=== PATIENT | female | born 1980 | race Hispanic/Latino ===

== ENCOUNTER 2024-08-31 11:34 | Inpatient (IN) | payer OTHER ==
[2024-08-31] MEDS ORDERED: Misoprostol 200 MCG TAB PR PRN (13:13)
[2024-08-31] MEDS ORDERED: hydrALAZINE 20 MG/ML VIAL SLOW IVP PRN ×4 (13:13→22:11)
[2024-08-31] MEDS ORDERED: Ondansetron PF 4 MG/2 ML Vial IVP PRN ×4 (13:13→22:11)
[2024-08-31] MEDS ORDERED: Calcium Gluc 4.6 MEQ/10 ML (100 MG/ML) SLOW IVP PRN (13:13)
[2024-08-31] MEDS ORDERED: Labetalol HCl 100 MG/20 ML VIAL SLOW IVP PRN ×2 (13:13)
[2024-08-31] MEDS ORDERED: Carboprost 250 MCG/ML AMP IM PRN (13:13)
[2024-08-31] MEDS ORDERED: Bicitra 30 ML UDCUP PO PRN (13:13)
[2024-08-31] MEDS ORDERED: Promethazine HCl 25 MG/ML VIAL IM PRN ×2 (13:13→22:11)
[2024-08-31] MEDS ORDERED: Tranexamic Acid 1,000 MG/10 ML VIAL IVP PRN (13:13)
[2024-08-31] MEDS ORDERED: Lorazepam 2 MG/ML VIAL SLOW IVP PRN (13:13)
[2024-08-31] MEDS ORDERED: Diphenoxylate HCl/Atropine Tablet PO PRN (13:13)
[2024-08-31] MEDS ORDERED: Oxytocin 30 units/NS 500 ML 500 ML IV SCH (13:15)
[2024-08-31 14:01] LABS: Hemoglobin 11.8 g/dL (12.0-15.5); Mean Corpuscular HGB CONC 32.8 g/dL (32.0-36.0); Mean Corpuscular Hemoglobin 26.4 pg (27.0-33.0); Mean Corpuscular Volume 80.5 fL (81.6-98.3); Mean Platelet Volume 11.3 fL (7.4-10.4); Platelet Count 288 10x3/uL (150-450); RBC Distribution Width 14.8 % (11.5-14.5); Red Blood Cell (RBC) Count 4.47 10x6/uL (3.90-5.03)
[2024-08-31 14:21] LABS: ALT (SGPT) 19 U/L (Less than 34); AST (SGOT) 19 U/L (11-34); Albumin 3.1 g/dL (3.1-4.5); Alkaline Phosphatase 299 U/L (40-110); Anion Gap 13 mmol/L (10-20); BUN (Urea Nitrogen) 10 mg/dL (7.0-18.7); Bilirubin, Total 0.3 mg/dL (0.3-1.2); Calc. Creatinine Clearance 0 mL/min (70-130); Carbon Dioxide 18 mmol/L (22-29); Chloride 109 mmol/L (98-107); Estimated GFR 116; Globulin 4.3 g/dL (2.4-3.5); Glucose 69 mg/dL (70-105); Potassium 4.1 mmol/L (3.5-5.1); Protein, Total 7.4 g/dL (6.0-8.3); Sodium 136 mmol/L (136-145)
[2024-08-31 14:39] LABS: Syphilis Antibody Nonreactive (Nonreactive); Syphilis Antibody Index 0.07 S/CO (<1.00 Non-Reactive)
[2024-08-31 14:40] LABS: HBsAg Index 0.16 S/CO (0-0.99); Hep B Surf Ag - L&D Non-Reactive S/CO (NonReactive)
[2024-08-31] MEDS: CEFAZOLIN 2 GM in Sodium Chloride 0.9% 100 ML IVPB SCH (16:44)
[2024-08-31] MEDS: Famotidine/PF 20 mg/2ml Vial SLOW IVP PRN (16:44)
[2024-08-31] MEDS ORDERED: Ketorolac Tromethamine 30 MG (1 mL) VIAL IVP PRN (18:35)
[2024-08-31] MEDS ORDERED: diphenhydrAMINE 50 MG/ML VIAL IVP PRN (18:35)
[2024-08-31] MEDS ORDERED: HYDROmorphone 0.5 MG/0.5 ML SYRINGE SLOW IVP PRN (18:35)
[2024-08-31] MEDS ORDERED: Naloxone HCl 0.4 mg/ml Vial IVP PRN ×2 (18:35)
[2024-08-31] MEDS ORDERED: fentaNYL 50 mcg/mL 1 mL Vial SLOW IVP PRN (18:35)
[2024-08-31] MEDS ORDERED: Moisturizing Cream (Eucerin) 113 GM JAR TOP PRN (18:35)
[2024-08-31] MEDS ORDERED: Meperidine HCl/PF 25 MG (1 mL) VIAL SLOW IVP PRN (18:35)
[2024-08-31] MEDS ORDERED: Naloxone HCl 0.4 mg/ml Vial IV PRN (18:35)
[2024-08-31] MEDS ORDERED: Communication Order-Pharmacy FS SCH (18:45)
[2024-08-31] MEDS: Promethazine HCl 25 MG/ML VIAL IM PRN (20:41)
[2024-08-31] MEDS: Ketorolac Tromethamine 30 MG (1 mL) VIAL IVP SCH (20:42)
[2024-08-31 20:58] VITALS: BMI 36.4
[2024-08-31] MEDS ORDERED: Lanolin Ointment 7 GM TUBE TOP PRN (22:11)
[2024-08-31] MEDS ORDERED: HYDROcodone/Acetaminophen 5/325 mg Tablet PO PRN (22:11)
[2024-08-31] MEDS ORDERED: Simethicone Chewable 80 MG TAB PO PRN (22:11)
[2024-08-31] MEDS ORDERED: diphenhydrAMINE 25 MG CAP PO PRN (22:11)
[2024-08-31] MEDS ORDERED: Bisacodyl 10 MG SUPP PR PRN (22:11)
[2024-08-31] MEDS: Lactated Ringer's 1,000 ML IV SCH (22:51)
[2024-08-31] MEDS: Oxytocin 10 UNITS/ML VIAL ONE ×2 (22:52)
[2024-08-31] MEDS: Ondansetron PF 4 MG/2 ML Vial ONE (22:52)
[2024-08-31] MEDS: PHENYLEPHRINE-NS 100 MCG/ML 10 ML SYRINGE ONE (22:52)
[2024-08-31] MEDS: Fentanyl 100 MCG/2 ML VIAL ONE (22:52)
[2024-08-31] MEDS: Morphine PF 10 MG/10 ML VIAL ONE (22:52)
[2024-08-31] MEDS: Ferrous Sulfate 325 MG TAB PO SCH (22:53)
[2024-08-31] MEDS: Docusate 100 MG CAP PO SCH (22:53)
[2024-09-01] MEDS: Ketorolac Tromethamine 30 MG (1 mL) VIAL IVP SCH ×2 (01:20→02:34)
[2024-09-01 05:05] LABS: Hematocrit 28.7 % (34.9-44.5); Hemoglobin 9.5 g/dL (12.0-15.5); Mean Corpuscular HGB CONC 33.1 g/dL (32.0-36.0); Mean Corpuscular Hemoglobin 26.6 pg (27.0-33.0); Mean Corpuscular Volume 80.4 fL (81.6-98.3); Platelet Count 216 10x3/uL (150-450); RBC Distribution Width 14.6 % (11.5-14.5); Red Blood Cell (RBC) Count 3.57 10x6/uL (3.90-5.03); White Blood Cell (WBC) Count 10.64 10x3/uL (3.5-10.5)
[2024-09-01] MEDS ORDERED: Meperidine HCl/PF 25 MG (1 mL) VIAL IM PRN (06:45)
[2024-09-01] MEDS ORDERED: HYDROcodone/Acetaminophen 5/325 mg Tablet PO PRN (06:45)
[2024-09-01] MEDS: Boostrix 0.5 ML (Tdap) VIAL (>/=7 yrs of age) IM ONE (07:31)
[2024-09-01] MEDS ORDERED: cloNIDine 0.1 MG TAB PO PRN (07:55)
[2024-09-01] MEDS: Docusate 100 MG CAP PO SCH (08:40)
[2024-09-01] MEDS: Ferrous Sulfate 325 MG TAB PO SCH (08:41)
[2024-09-01] MEDS: Prenatal Vitamin 1 TAB PO SCH (08:41)
[2024-09-01] MEDS: NIFEdipine XL 30 MG ER.TAB PO SCH (08:41)
[2024-09-02] MEDS: Ibuprofen 800 MG TAB PO SCH (06:31)
[2024-09-02] MEDS: HYDROcodone/Acetaminophen 5/325 mg Tablet PO PRN (23:35)
[2024-09-03 15:43] VITALS: BP 121/75; TEMP 98.3
== END 2024-09-03 15:18 | disposition home or self-care (01) | DRG 788 ==
LOC: CSHLD 11:34 → OBSVTOIN 11:34 → CSHPP 21:25
PROVIDERS: ADMIT Family Medicine; ATTEND Family Medicine
PROC: 10D00Z1 Extraction of Products of Conception, Low, Open Approach (ICD-10-PCS; principal; 2024-08-31)
DX: O34.211 Maternal care for low transverse scar from previous cesarean delivery (principal); Z3A.38 38 weeks gestation of pregnancy; Z37.0 Single live birth; O09.523 Supervision of elderly multigravida, third trimester; Z79.82 Long term (current) use of aspirin; O14.94 Unspecified pre-eclampsia, complicating childbirth
CPT/HCPCS: 36415; 51702; 80053; 85027; 86780; 86850; 86900; 86901; 87340; C1889; J1885; J2274; J2405; J2550; J2590; J3010; J3490